=== PATIENT | male | born 1990 | race African-American/Black ===

== ENCOUNTER 2018-04-14 18:21 | Emergency (ER) | payer SELFPAY ==
[2018-04-14] MEDS ORDERED: predniSONE 20 MG TAB ONE (18:38)
== END 2018-04-14 18:46 | disposition home or self-care (01) ==
LOC: NAV ERS 18:21
DX: T78.40XA Allergy, unspecified, initial encounter (principal); F17.210 Nicotine dependence, cigarettes, uncomplicated
CPT/HCPCS: 99283; J7506

== ENCOUNTER 2021-07-13 10:05 | Emergency (ER) | payer SELFPAY | END 2021-07-13 12:00 | disposition home or self-care (01) | LOC: NAV ERS 10:05 | DX: S82.831A Other fracture of upper and lower end of right fibula, initial encounter for closed fracture (principal); F17.210 Nicotine dependence, cigarettes, uncomplicated; X50.9XXA Other and unspecified overexertion or strenuous movements or postures, initial encounter ==